=== PATIENT | male | born 1985 | race African-American/Black ===

== ENCOUNTER → 2024-08-22 | Outpatient (CLI) | payer MEDICAID ==
[2024-08-22 14:00] VITALS: BP 131/84; PULSE 91; RESP 16; TEMP 97.8; BMI 48.8
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
[2024-08-22 16:05] LABS: INR 0.9 (<1.2); Partial Thromboplastin Time 24.3 sec (22.0-30.0); Prothrombin Time 9.9 sec (10.0-12.5)
[2024-08-22 19:02] LABS: Magnesium 1.6 mg/dL (1.5-2.4)
[2024-08-22 19:03] LABS: % Iron Saturation 15.46 (15.00-50.00); ALT 15 U/L (10-49); AST 16 U/L (14-35); Albumin 4.2 g/dL (3.8-4.9); Albumin/Globulin Ratio 1.68 Ratio (1.60-3.17); Alkaline Phosphatase 94 U/L (41-126); BUN/Creat Ratio 16.36 Ratio (12.00-20.00); Calcium 9.5 mg/dL (8.7-10.3); Carbon Dioxide 24.7 mmol/L (21.6-31.8); Chloride 103 mmol/L (96-109); Globulin 2.5 g/dL (1.6-3.3); Glucose 123 mg/dL (70-110); Iron 45 UG/DL (65-175); Phosphorus 4.1 mg/dL (2.4-5.1); Potassium 4.2 mmol/L (3.5-5.5); Sodium 141 mmol/L (135-145); Total Bilirubin <0.2 mg/dL (0.3-1.2); Total Iron Binding Capacity 291 UG/DL (228-460); Total Protein 6.7 g/dL (6.2-8.2)
[2024-08-22 19:06] LABS: HCT 41.4 % (39.6-50.0); HGB 13.7 g/dL (13.0-17.0); MCH 30.6 pg (27.0-32.0); MCHC 33.1 g/dL (32.0-37.0); MCV 92.4 FL (80.0-97.0); Mean Platelet Volume 11.2 FL (9.5-12.2); NRBC Per 100 WBC 0 X 10*3/uL (0.00-0.01); Platelet Count 262 X 10*3/uL (140-440); RBC 4.48 X 10*6/uL (4.40-5.60); RDW 12.1 % (11.5-14.5); WBC 5.08 X 10*3/uL (4.50-10.00)
[2024-08-22 21:25] LABS: Prealbumin 26.4 mg/dL (18.0-42.0)
[2024-08-23 12:36] LABS: Zinc, Serum 68 ug/dL (60-130)
[2024-08-24 08:35] LABS: Vit B1(Thiamine) 69 ug/L (38-122)
[2024-08-24 09:57] LABS: Vitamin A 57 ug/dL (38-106)
[2024-08-24 21:19] LABS: Selenium 115 mcg/L (63-160)
[2024-08-25 08:50] LABS: Anabasine Urine 7.7 ng/mL (<2.0)
== END ==
LOC: BARWHC3 13:40
PROVIDERS: ATTEND Surgery Plastic and Reconstructive Surgery
DX: E66.01 Morbid (severe) obesity due to excess calories (principal); D50.8 Other iron deficiency anemias; D50.9 Iron deficiency anemia, unspecified; K91.2 Postsurgical malabsorption, not elsewhere classified; E45 Retarded development following protein-calorie malnutrition; E55.9 Vitamin D deficiency, unspecified; K74.1 Hepatic sclerosis; N19 Unspecified kidney failure; T56.894A Toxic effect of other metals, undetermined, initial encounter; K50.90 Crohn's disease, unspecified, without complications; E11.9 Type 2 diabetes mellitus without complications
CPT/HCPCS: 80053; 80307; 80323; 82306; 82525; 82607; 82728; 82746; 83036; 83540; 83550; 83735; 83970; 84100; 84134; 84255; 84425; 84443; 84590; 84630; 85027; 85610; 85730; 93005; 99212

== ENCOUNTER 2024-10-01 06:39 | Day surgery (SDC) | payer MEDICAID ==
[2024-09-27 15:42] VITALS: BMI 48.9
[2024-10-01 07:02] VITALS: TEMP 97.6
[2024-10-01] MEDS: LACTATED RINGERS 1,000 ML IV ONE (07:02)
[2024-10-01 07:09] LABS: Glucose,Whole Blood 116 mg/dL (70-110)
[2024-10-01] MEDS: LACTATED RINGERS 1,000 ML IV SCH (07:11)
[2024-10-01] MEDS ORDERED: PROPOFOL 10 MG/ML 20 ML VIAL IV ONE (07:30)
[2024-10-01] MEDS ORDERED: LIDOCAINE 1% INJ 10MG/ML (20 ML MDV) ONE (07:30)
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
--- NOTE | 2024-10-01 07:49 | P.PCN ---
Date of Procedure: 10/01/24 Description of Procedure: PREOPERATIVE DIAGNOSIS: Gastroesophageal reflux disease. Morbid obesity due to excess calories Dysphagia POSTOPERATIVE DIAGNOSIS: Gastritis without bleeding Duodenitis without bleeding OPERATION: Esophagogastroduodenoscopy with cold forceps biopsies along esophagus, antrum and duodenum SURGEON: Roseanna Cronin MD ANESTHESIA: MAC. INDICATIONS: The patient is a 39-year-old male who presents with reflux disease. Benefits and risks of the procedure were described. Informed consent was obtained. DESCRIPTION: The patient was brought into the endoscopy suite and laid in the left lateral decubitus position. An Olympus gastroscope was passed along the posterior oropharynx down to the distal esophagus where the squamocolumnar junction was encountered at 40 cm from the incisors. The stomach was entered and no bile reflux was found. Additional findings are listed below. Biopsies with cold forceps were obtained of the antrum. The first through third portion of the duodenum was examined. Retroflexion of the scope confirmed Hill grade 2 lower esophageal valve. The squamocolumnar junction demonstrated LA grade B erosive esophagitis. The stomach was desufflated. The patient tolerated the procedure well. FINDINGS: Squamocolumnar junction 40 cm from the incisors. Diaphragmatic hiatus at 40 cm. Hill grade 2 lower esophageal valve. LA grade A erosive esophagitis. Biopsies obtained of the duodenum. Acute gastritis without bleeding with biopsies obtained. Acute duodenitis without bleeding RECOMMENDATIONS: Discontinue NSAIDs due to acute duodenitis and acute gastritis Plan - Discharge Summary Discharge Rx Participant: No New Discharge Prescriptions: New Omeprazole [PriLOSEC] 40 mg PO DAILY #14 cap Continue Insulin Glargine-Yfgn [Semglee (Yfgn) Pen] 43 units SQ HS Fludrocortisone [Florinef] 0.1 tab PO DAILY Glimepiride 2 mg PO DAILY hydroCHLOROthiazide 25 mg PO DAILY Sildenafil Citrate 100 mg PO DIRECTED PRN PRN Reason: E.D. lisinopriL 30 mg PO QAM metFORMIN HCL [Glucophage] 1,000 tab PO BID Atorvastatin [Lipitor] 40 mg PO HS Gabapentin 300 mg PO TID allopurinoL 300 mg PO DAILY Discontinued Naproxen 500 mg PO BID Ibuprofen [Motrin] 800 mg PO Q8H PRN PRN Reason: Pain Discharge Medication List Fludrocortisone [Florinef] 0.1 tab PO DAILY 08/22/24 [History] Insulin Glargine-Yfgn [Semglee (Yfgn) Pen] 43 units SQ HS 08/22/24 [History] lisinopriL 30 mg PO QAM 08/22/24 [History] metFORMIN HCL [Glucophage] 1,000 tab PO BID 08/22/24 [History] Atorvastatin [Lipitor] 40 mg PO HS 09/27/24 [History] Gabapentin 300 mg PO TID 09/27/24 [History] Glimepiride 2 mg PO DAILY 09/27/24 [History] Sildenafil Citrate 100 mg PO DIRECTED PRN 09/27/24 [History] allopurinoL 300 mg PO DAILY 09/27/24 [History] hydroCHLOROthiazide 25 mg PO DAILY 09/27/24 [History] Omeprazole [PriLOSEC] 40 mg PO DAILY #14 cap 10/01/24 [Rx] Follow up App[facility]ment(s[facility]Ref[facility] [place] [facility] - 10/17/24 3:00 pm Patient Instructions/Handouts: Gastritis (DC), Duodenitis (GEN) Discharge Disposition: HOME SELF-CARE
--- NOTE | 2024-10-01 08:09 | P.PN ---
Progress Note - Text Progress Note Date: 10/01/24 Labs reviewed. Positive urine nicotine. Patient reports still smoking recently quit less than 3 weeks ago. Does confirm taking marijuana. Additionally, low iron, low vitamin D and elevated hemoglobin A1c confirmed. Due to finding of duodenitis and NSAIDs, alternatives such as vibrating massage ball for pain described.
[2024-10-01 08:14] VITALS: PULSE 78; RESP 18
[2024-10-01 08:20] VITALS: BP 123/72
== END 2024-10-01 08:38 | disposition home or self-care (01) ==
LOC: ORWHC2ENDO 06:39
PROVIDERS: ATTEND Surgery Plastic and Reconstructive Surgery
DX: K21.00 Gastro-esophageal reflux disease with esophagitis, without bleeding (principal); K29.00 Acute gastritis without bleeding; K29.50 Unspecified chronic gastritis without bleeding; K29.80 Duodenitis without bleeding; K44.9 Diaphragmatic hernia without obstruction or gangrene; I10 Essential (primary) hypertension; E11.9 Type 2 diabetes mellitus without complications; E78.5 Hyperlipidemia, unspecified; G47.33 Obstructive sleep apnea (adult) (pediatric); M10.9 Gout, unspecified; M51.369 Other intervertebral disc degeneration, lumbar region without mention of lumbar back pain or lower extremity pain; M16.12 Unilateral primary osteoarthritis, left hip; E55.9 Vitamin D deficiency, unspecified; E61.1 Iron deficiency; E66.01 Morbid (severe) obesity due to excess calories; Z79.52 Long term (current) use of systemic steroids; Z79.4 Long term (current) use of insulin; Z79.84 Long term (current) use of oral hypoglycemic drugs; Z79.1 Long term (current) use of non-steroidal anti-inflammatories (NSAID); Z79.899 Other long term (current) drug therapy; Z87.891 Personal history of nicotine dependence
CPT/HCPCS: 88305; 43239; J2003; J2704

== ENCOUNTER → 2024-10-17 | Outpatient (CLI) | payer MEDICAID ==
[2024-10-17 17:20] VITALS: BP 126/84; PULSE 82; RESP 16; TEMP 98.5; BMI 48.6
--- NOTE | 2024-10-17 17:34 | P.BASOAP ---
Subjective Progress Note Date: 10/17/24 Labs reviewed with elevated Hgb A1c. Needs food journal. Omeprazole prescribed. EGD reviwed. Sleeve ideal. My fitness pal target protein minus 50 grams. EKG reviewed. Goal 302 pounds for sleeve. Objective - Vital Signs Vital signs: Vital Signs Temp 98.5 F 10/17/24 17:18 Pulse 82 10/17/24 17:18 Resp 16 10/17/24 17:18 BP 126/84 10/17/24 17:18 Pulse Ox FiO2 Intake & Output 10/16/24 10/17/24 10/17/24 18:59 06:59 18:59 Weight 145.15 kg Assessment/Plan Plan: Date: 10/17/24 Initial Weight: 145.603 kg Initial BMI: 48.8 Current Weight: 145.15 kg Current BMI: 48.6 Type of Surgery: Total Volume in Band: Previous Volume: Volume Removed: Volume Added: Band Size:
== END ==
LOC: BARWHC3 15:02
PROVIDERS: ATTEND Surgery Plastic and Reconstructive Surgery
DX: E66.01 Morbid (severe) obesity due to excess calories (principal); Z68.42 Body mass index [BMI] 45.0-49.9, adult
CPT/HCPCS: 99211

== ENCOUNTER 2024-12-09 08:56 | Emergency (ER) | payer MEDICAID ==
[2024-12-09 09:00] VITALS: BP 131/84; PULSE 100; RESP 18; TEMP 98.2
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
[2024-12-09 09:18] LABS: Basophils # (A) 0.03 10*3/uL (0.00-0.10); Basophils % (A) 0.4 %; Eosinophils # (A) 0.24 10*3/uL (0.04-0.35); Eosinophils % (A) 3.6 %; HCT 46.9 % (39.6-50.0); HGB 15.8 g/dL (13.0-17.0); Lymphocytes # (A) 0.87 10*3/uL (0.90-5.00); Lymphocytes % (A) 12.9 %; MCH 31.2 pg (27.0-32.0); MCHC 33.7 g/dL (32.0-37.0); MCV 92.5 fL (80.0-97.0); Monocytes # (A) 0.53 10*3/uL (0.20-1.00); Monocytes % (A) 7.9 %; Neutrophils # (A) 5.03 10*3/uL (1.80-7.70); Neutrophils % (A) 74.9 %; Platelet Count 288 10*3/uL (140-440); RBC 5.07 10*6/uL (4.40-5.60); RDW 12.3 % (11.5-14.5); WBC 6.72 10*3/uL (4.50-10.00)
[2024-12-09] MEDS: ONDANSETRON 4 MG/2 ML VIAL IVP STA (09:27)
[2024-12-09] MEDS: KETOROLAC 15 MG/ML 1 ML VIAL IVP STA (09:27)
[2024-12-09] MEDS: LACTATED RINGERS 1,000 ML IV ONE (09:28)
[2024-12-09] MEDS: DIPHENOX-ATROP 2.5-0.025 MG 1 EACH TAB PO STA (09:28)
[2024-12-09 09:36] LABS: ALT 19 U/L (4-49); AST 20 U/L (17-59); African American GFR (CKD) 59 (>60 ml/min/1.73 sqM); Albumin 4.9 g/dL (3.5-5.0); Alkaline Phosphatase 113 U/L (38-126); Amylase 99 U/L (30-110); Anion Gap 15 mmol/L; Blood Urea Nitrogen 34 mg/dL (9-20); Calcium 10.5 mg/dL (8.4-10.2); Carbon Dioxide 24 mmol/L (22-30); Chloride 104 mmol/L (98-107); Glucose 191 mg/dL (74-99); Lipase 123 U/L (23-300); Non-African American GFR(CKD) 51 (>60 ml/min/1.73 sqM); Potassium 4.5 mmol/L (3.5-5.1); Sodium 143 mmol/L (137-145); Total Protein 8.2 g/dL (6.3-8.2)
--- NOTE | 2024-12-09 10:05 | XR ---
KUB HISTORY: Abdominal pain COMPARISON: 07/12/2024. TECHNIQUE: 2 upright views of the abdomen were obtained. FINDINGS: There are scattered differential air-fluid levels within nondilated small bowel loops within the cent ral abdomen. There are air-fluid levels in the right colon. There are cholecystectomy loops in the right upper quadrant. The osseous structures are intact. There is no free air beneath the diaphragm. IMPRESSION: Bowel gas pattern suggestive of early or partial bowel obstruction. Continued follow-up is recommende d [facility], , 12/09/2024 10:03 AM
[2024-12-09] MEDS: SODIUM CHLORIDE 0.9% 1,000 ML IV ONE (10:38)
--- NOTE | 2024-12-09 10:45 | CT ---
EXAMINATION TYPE: CT abdomen pelvis wo con DATE OF EXAM: 12/09/2024 COMPARISON: None CLINICAL INDICATION: Male, 39 years old with history of Abdominal pain; PHH, Epigastric pain, N/V/D, fever. TECHNIQUE: CT scan of the abdomen and pelvis is performed without oral or IV contrast. CT DLP: [address] CTDI: mGy Automated exposure control for dose reduction was used. FINDINGS: Within the limitations of a non-contrast study, the following observations are made. There is an 11.5 mm nodule in the right middle lobe. CT thorax is recommended to evaluate the lung pa renchyma in its entirety. There is surgical absence of the gallbladder. There is no biliary ductal dilatation. There is no organomegaly of the liver, pancreas, spleen or adrenal glands. There are no renal calcifications or hydronephrosis. The caliber of the abdominal aorta is normal and there is no retroperitoneal adenopathy or hemorrhage . The bowel loops are normal in caliber is no evidence of obstruction. No inflammatory changes are iden tified in the mesentery and there is no free intraperitoneal air or fluid. There is no pelvic mass, free fluid, abscess or adenopathy. The osseous structures and soft tissues are unremarkable. IMPRESSION: 1. No acute changes within the abdomen or pelvis. 2. 11.5 mm nodule in the right middle lobe. CT thorax is recommended to evaluate the lung parenchyma in its entirety. [facility], , 12/09/2024 10:42 AM
[2024-12-09] MEDS: ONDANSETRON 4 MG ODT STARTER PACK 2 TAB BTL PO STA (11:03)
[2024-12-09] MEDS: DIPHENOX-ATROP STARTER PACK 8 TAB BTL PO STA (11:03)
== END 2024-12-09 11:17 | disposition home or self-care (01) ==
LOC: EC 08:56
DX: K52.9 Noninfective gastroenteritis and colitis, unspecified (principal); E86.0 Dehydration; N28.9 Disorder of kidney and ureter, unspecified; R91.1 Solitary pulmonary nodule; Z87.891 Personal history of nicotine dependence
CPT/HCPCS: 36415; 93005; 80053; 82150; 83690; 85025; 74018; 74176; 99284; 96374; 96375; 96361; J2405; J1885; S0119

== ENCOUNTER 2024-12-13 12:59 | Emergency (ER) | payer MEDICAID ==
[2024-12-13 13:08] VITALS: BP 145/86; PULSE 88; RESP 16; TEMP 98
[2024-12-13 13:12] LABS: Glucose,Whole Blood 137 mg/dL (70-110)
[2024-12-13 14:03] LABS: Basophils # (A) 0.04 10*3/uL (0.00-0.10); Basophils % (A) 0.6 %; Eosinophils # (A) 0.11 10*3/uL (0.04-0.35); Eosinophils % (A) 1.7 %; HCT 40.0 % (39.6-50.0); HGB 13.6 g/dL (13.0-17.0); Lymphocytes # (A) 1.10 10*3/uL (0.90-5.00); Lymphocytes % (A) 16.5 %; MCH 31.1 pg (27.0-32.0); MCHC 34.0 g/dL (32.0-37.0); MCV 91.3 fL (80.0-97.0); Monocytes # (A) 0.45 10*3/uL (0.20-1.00); Monocytes % (A) 6.8 %; Neutrophils # (A) 4.95 10*3/uL (1.80-7.70); Neutrophils % (A) 74.2 %; Platelet Count 229 10*3/uL (140-440); RBC 4.38 10*6/uL (4.40-5.60); RDW 12.2 % (11.5-14.5); WBC 6.66 10*3/uL (4.50-10.00)
[2024-12-13] MEDS: ONDANSETRON 4 MG/2 ML VIAL IVP STA (14:05)
[2024-12-13] MEDS: PANTOPRAZOLE 40 MG/10 ML VIAL IVP STA (14:06)
[2024-12-13] MEDS: SODIUM CHLORIDE 0.9% 1,000 ML IV SCH (14:06)
[2024-12-13] MEDS: KETOROLAC 15 MG/ML 1 ML VIAL IVP STA (14:06)
[2024-12-13 14:13] LABS: ALT 18 U/L (4-49); AST 21 U/L (17-59); African American GFR (CKD) 88 (>60 ml/min/1.73 sqM); Albumin 3.8 g/dL (3.5-5.0); Alkaline Phosphatase 93 U/L (38-126); Amylase 97 U/L (30-110); Anion Gap 13 mmol/L; Blood Urea Nitrogen 32 mg/dL (9-20); Calcium 9.6 mg/dL (8.4-10.2); Carbon Dioxide 20 mmol/L (22-30); Chloride 107 mmol/L (98-107); Glucose 145 mg/dL (74-99); INR 0.9 (<1.2); Lipase 65 U/L (23-300); Non-African American GFR(CKD) 76 (>60 ml/min/1.73 sqM); Partial Thromboplastin Time 24.4 sec (22.0-30.0); Potassium 4.5 mmol/L (3.5-5.1); Prothrombin Time 10.4 sec (10.0-12.5); Sodium 140 mmol/L (137-145); Total Protein 6.5 g/dL (6.3-8.2)
[2024-12-13 14:39] LABS: RSV Not Detected (Not Detectd)
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
[2024-12-13] MEDS: MORPHINE SULFATE 4 MG/ML SYRINGE IVP STA (15:22)
[2024-12-13 15:48] LABS: Bilirubin,Urine Negative (Negative); Blood,Urine Trace (Negative); Color,Urine Light Yellow; Glucose,Urine (UA) Negative (Negative); Ketones,Urine Negative (Negative); Leukocyte Esterase,Urine Negative (Negative); Mucus,Urine Rare /hpf; Nitrite,Urine Negative (Negative); PH, Urine 5.0 (5.0-8.0); Protein,Urine Trace (Negative); RBC,Urine 1 /hpf (0-5); Specific Gravity,Urine 1.023 (1.001-1.035); Squamous Epithelial Cell,Urine 2 /hpf (0-4); Urobilinogen,Urine <2.0 mg/dL (<2.0); WBC,Urine 1 /hpf (0-5)
[2024-12-13] MEDS: LIDOCAINE VISCOUS 2% 15 ML CUP PO ONE (16:13)
[2024-12-13] MEDS: MAG HYDROX/AL HYDROX/SIMETH 30 ML CUP PO STA (16:13)
== END 2024-12-13 16:49 | disposition home or self-care (01) ==
LOC: EC 12:59
DX: K29.70 Gastritis, unspecified, without bleeding (principal); R10.13 Epigastric pain; Z90.49 Acquired absence of other specified parts of digestive tract; Z87.891 Personal history of nicotine dependence
CPT/HCPCS: 36415; 93005; 80053; 82150; 83605; 83690; 84484; 85025; 85610; 85730; 81001; 87636; 99284; 96374; 96375; 96361; J2270; J2405; J1885; J2470

== ENCOUNTER → 2024-12-19 | Outpatient (CLI) | payer MEDICAID ==
[2024-12-19 14:31] VITALS: BP 138/89; PULSE 97; RESP 16; TEMP 98.2; BMI 47.4
--- NOTE | 2024-12-19 14:47 | P.BASOAP ---
Subjective Progress Note Date: 12/19/24 Patient comes in for his consent for sleeve gastrectomy. He has done excellent decrease in his hemoglobin A1c from 9-7.2. Additionally, he has lost 10 pounds. His target weight is 302 pounds. Benefits and risks of sleeve gastrectomy viewed in detail including extended recovery of 6 weeks as he lives over 20+ pounds. Anticipated return to work for February 25 reviewed. Objective - Vital Signs Vital signs: Vital Signs Temp 98.2 F 12/19/24 14:29 Pulse 97 12/19/24 14:29 Resp 16 12/19/24 14:29 BP 138/89 12/19/24 14:29 Pulse Ox FiO2 Intake & Output 12/18/24 12/19/24 12/19/24 18:59 06:59 18:59 Weight 141.521 kg Assessment/Plan Plan: Date: 12/19/24 Initial Weight: 145.603 kg Initial BMI: 48.8 Current Weight: 141.521 kg Current BMI: 47.4 Type of Surgery: Total Volume in Band: Previous Volume: Volume Removed: Volume Added: Band Size:
--- NOTE | 2024-12-19 14:49 | P.PN ---
Progress Note - Text Progress Note Date: 12/19/24 To whom it may concern: Jose Weller is under my surgical care. His anticipated date of surgery is Tuesday, January 07, 2025. He may not return to work until complete recovery anticipated for Tuesday, February 25, 2025. Regards, Roseanna Cronin MD FACS
== END ==
LOC: BARWHC3 14:01
PROVIDERS: ATTEND Surgery Plastic and Reconstructive Surgery
DX: E66.01 Morbid (severe) obesity due to excess calories (principal); Z68.42 Body mass index [BMI] 45.0-49.9, adult
CPT/HCPCS: 99211

== ENCOUNTER → 2024-12-28 | Outpatient (CLI) | payer MEDICAID ==
[2024-12-28 15:27] LABS: HCT 41.8 % (39.6-50.0); HGB 13.3 g/dL (13.0-17.0); MCH 30.3 pg (27.0-32.0); MCHC 31.8 g/dL (32.0-37.0); MCV 95.2 FL (80.0-97.0); NRBC Per 100 WBC 0 X 10*3/uL (0.00-0.01); Platelet Count 259 X 10*3/uL (140-440); RBC 4.39 X 10*6/uL (4.40-5.60); RDW 12.8 % (11.5-14.5); WBC 6.21 X 10*3/uL (4.50-10.00)
[2024-12-28 15:34] LABS: ALT 16 U/L (10-49); AST 21 U/L (14-35); Albumin 4.5 g/dL (3.8-4.9); Albumin/Globulin Ratio 1.61 Ratio (1.60-3.17); Alkaline Phosphatase 94 U/L (41-126); Anion Gap 12.30 mmol/L (4.00-12.00); BUN/Creat Ratio 16.17 Ratio (12.00-20.00); Blood Urea Nitrogen 37.2 mg/dL (9.0-27.0); Calcium 9.9 mg/dL (8.7-10.3); Carbon Dioxide 25.7 mmol/L (21.6-31.8); Chloride 102 mmol/L (96-109); Globulin 2.8 g/dL (1.6-3.3); Glucose 90 mg/dL (70-110); Potassium 4.2 mmol/L (3.5-5.5); Sodium 140 mmol/L (135-145); Total Protein 7.3 g/dL (6.2-8.2)
== END | disposition home or self-care (01) ==
LOC: LABPAT 09:34
PROVIDERS: ATTEND Surgery Plastic and Reconstructive Surgery
DX: Z01.812 Encounter for preprocedural laboratory examination (principal); E66.01 Morbid (severe) obesity due to excess calories
CPT/HCPCS: 80053; 85027; 86850; 86900; 86901